=== PATIENT | male | born 1970 | race African-American/Black ===

== ENCOUNTER 2024-07-05 16:18 | Emergency (ER) | payer OTHER, SELFPAY ==
[2024-07-05 16:21] VITALS: BP 166/88; BMI 24.1
[2024-07-05 16:28] LABS: Glucose - Point of Care 120 mg/dl (70-99)
[2024-07-05 16:36] VITALS: BP 128/86
[2024-07-05 16:45] LABS: % Basophils 1.2 % (0-2); % Eosinophils 5.8 % (0-6); % Immature Granulocytes 0.2 % (0-0.5); % Lymphocytes 30.6 % (20.5-51.1); % Monocytes 8.1 % (1.7-9.3); % Neutrophils 54.1 % (42.2-75.2); Absolute Basophils 0.1 10^3/uL (0-0.2); Absolute Eosinophils 0.3 10^3/uL (0-0.7); Absolute Lymphocytes 1.5 10^3/uL (1.2-3.4); Absolute Monocytes 0.4 10^3/uL (0.1-0.6); Absolute Neutrophils 2.7 10^3/uL (1.4-6.5); Hemoglobin 12.3 g/dL (13.0-18.0); Mean Corp Hgb Conc. 34.2 g/dL (33.0-37.0); Mean Corpuscular Hgb 26.5 pg (27.0-31.0); Mean Corpuscular Volume 77.6 fL (80.0-94.0); Mean Platelet Volume 9.4 fL (7.4-10.4); Nucleated Red Blood Cells % 0 % (-); Platelet Count 320 10^3/uL (130-400); Red Blood Cell Count 4.64 10^6/uL (4.70-6.10); Red Cell Dist. Width 12.8 % (11.5-14.5)
[2024-07-05 16:46] LABS: Urine Albumin Negative (Neg - Trace); Urine Bilirubin Negative (Negative); Urine Character Clear (Clear); Urine Color Yellow; Urine Glucose Negative (Negative); Urine Ketone Negative (Negative); Urine Leukocyte Negative (Negative); Urine Nitrite Negative (Negative); Urine Occult Blood Negative (Negative); Urine Urobilinogen Negative (Neg - 1+)
--- NOTE | 2024-07-05 16:47 | PHANOTE ---
med rec note
Called [facility] for med list to be faxed 07/05/24 16:48
[2024-07-05 16:51] VITALS: BP 130/87
[2024-07-05 16:57] LABS: Osmolality Urine 95 mOsm/kg (300-900)
[2024-07-05 17:00] VITALS: BP 122/76
[2024-07-05 17:00] LABS: ALT (SGPT) 51 U/L (0-50); AST (SGOT) 59 U/L (17-59); Albumin 5.2 g/dl (3.5-5.0); Alkaline Phosphatase 52 U/L (38-126); Blood Urea Nitrogen 13 mg/dl (9-20); Calcium 9.9 mg/dl (8.4-10.2); Carbon Dioxide 25 mmol/L (22-30); Chloride 98 mmol/L (98-107); Estimated Creatinine Clearance 89 ml/min; Glucose 93 mg/dl (70-99); Potassium 4.2 mmol/L (3.5-5.1); Sodium 133 mmol/L (135-145); Total Bilirubin 1.3 mg/dl (0.2-1.3); Total Protein 7.7 g/dl (6.3-8.2); eGFR > 60.00
--- NOTE | 2024-07-05 17:23 | ED.GENMED ---
History of Present Illness
General
Chief Complaint: Abnormal Lab Value
Source: patient and police
Exam Limitations: none
Time Seen by Provider: 07/05/24 16:34
Nursing documentation reviewed up to this point in time: agreed with
History of Present Illness
History of Present Illness:
54-year-old male presenting to the emergency department after he was told that his sodium levels were elevated. He claims that he was 'in the hole' and was not eating correctly they did labs and notes that his sodium was elevated and sent him in.
He otherwise feels well at this point he feels very hungry but otherwise feels well.
Review of Systems
Review of Systems
Allergies reviewed?: Yes
All Other Systems: ROS reviewed and negative except as documented in HPI and ROS
Phy Exam
Physical Exam
Physical Exam:
GENERAL: Alert , in no apparent distress
EYE: pupils equal and reactive
NECK: Supple, no significant adenopathy.
ENT: o/p clr, mmm.
CARDIAC: Regular rate and rhythm .
LUNGS: Clear breath sounds bilaterally, no acute respiratory distress, no wheezes/rales/rhonchi
ABDOMEN: Soft, without focal tenderness, no r/g, no cvat
NEUROLOGICAL: Alert and oriented, no focal neuro deficits
SKIN: Warm and dry, skin intact.
MUSCULOSKELETAL: No edema, well perfused.
PSYCH: Normal and appropriate interaction.
Course
Orders/Labs/Results
Orders:
Orders
07/05/24 16:26
Electrocardiogram (*1) Urgent
Reason for Study: Chest Pain
EKG- Treatment ONCE
07/05/24 16:29
Complete Blood Count/With Diff Urgent
Comprehensive Metabolic Panel Urgent
Osmolality, Random Urine Urgent
Date Specimen was Collected: 07/05/24
Time Specimen was Collected: 16:27
UA Reflex to Culture [Urinalysis Reflex To Culture] Urgent
Date Specimen was Collected: 07/05/24
Time Specimen was Collected: 16:27
Abnormal Lab Results
07/05/24 07/05/24
16: 16:29
RBC 4.64 L 10^6/uL
(4.70-6.10)
Hgb 12.3 L g/dL
(13.0-18.0)
Hct 36.0 L %
(39.0-52.0)
MCV 77.6 L fL
(80.0-94.0)
MCH 26.5 L pg
(27.0-31.0)
Sodium 133 L mmol/L
(135-145)
ALT 51 H U/L
(0-50)
Albumin 5.2 H g/dl
(3.5-5.0)
Urine Osmolality 95 L mOsm/kg
(300-900)
POC Glucose 120 H mg/dl
(70-99)
07/05/24 16:29
07/05/24 16:29
Vital Signs
Initial and Last Documented VS:
Initial Vital Signs
Temp Pulse Resp BP Pulse Ox
98.1 F 97 16 166/88 99
07/05/24 16:21 07/05/24 16:21 07/05/24 16:21 07/05/24 16:21 07/05/24 16:21
Last Documented Vital Signs
Temp Pulse Resp BP Pulse Ox
98.1 F 87 15 128/86 100
07/05/24 16:21 07/05/24 16:45 07/05/24 16:45 07/05/24 16:36 07/05/24 16:45
MDM/Problems Addressed
MDM/Problems Addressed:
54-year-old male presenting from the halfway with concerns of elevated sodium level on labs that were performed yesterday. Here sodium level is 133. Vital signs are normal patient no distress has no current symptoms stable for discharge.
*Critical Care Note
Total Time (30-74mins, 75-104mins- exclusive of procedures): Not Applicable
ED Attending Note
-
Portions of this chart may have been created with voice recognition software.� Occasional wrong word or��sound alike� substitutions may have occurred due to the inherent limitations of voice recognition software.
Discharge Plan
Departure
Patient Disposition: Alf
Date of Disposition: 07/05/24
Time of Disposition: 17:23
Patient with high blood pressure during this ER visit?: No
Condition: Good
Covid-19: Not Applicable
Discharge Problem:
Abnormal laboratory test
Referrals:
[facility] [Family Provider] -
Activity Restrictions/Additional Instructions:
You can to the emergency department today with concerns of abnormal labs. Here your labs did not show any emergent findings. Your sodium was slightly low. Please make sure you eat good meals over the next few days. Otherwise return for any
worsening, new or concerning symptoms.
Interventions
Interventions:
*Risk Screen - Suicide Last Done: 07/05/24 16:21
*General Assessment Last Done: 07/05/24 16:58
*Neglect/Abuse Screening Last Done: 07/05/24 16:21
*ED- Fall Risk Assessment Last Done: 07/05/24 16:58
*ED COVID-19 Vaccine History Last Done: 07/05/24 16:58
Discharge Date and Time
Print Language: POLISH
== END 2024-07-05 17:40 ==
LOC: EMR 16:18
PROVIDERS: Emergency Medicine; EMERGENCY PHYSICIAN Emergency Medicine
DX: Z00.00 Encounter for general adult medical examination without abnormal findings (principal)
CPT/HCPCS: 99284; 80053; 81003; 82962; 83935; 85025; 93005